=== PATIENT | female | born 2000 | race Two or more races ===

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

== ENCOUNTER → 2022-04-06 | Emergency (ER) | payer MEDICAID ==
[~2022-04-06] VITALS: Ht 160 cm; Wt 49.9 kg
[2022-04-06 19:31] VITALS: BP 121/77
== END | disposition home or self-care (01) ==
LOC: ER 13:52
DX: S60.051A Contusion of right little finger without damage to nail, initial encounter (principal); W22.8XXA Striking against or struck by other objects, initial encounter; Y93.89 Activity, other specified; Y92.89 Other specified places as the place of occurrence of the external cause; Y99.8 Other external cause status
CPT/HCPCS: 73130